=== PATIENT | male | born 1970 | race Caucasian/White ===

== ENCOUNTER 2017-10-11 05:38 | Emergency (ER) | payer BC ==
--- NOTE | 2017-10-11 07:10 | CT ---
CT abdomen and pelvis Technique: Multiple axial sections of were obtained from above the dome of the diaphragm inferiorly to the pubic symphysis. Intravenous and oral contrast not utilized. Study has been performed as a ureteral stone protocol. Comparison: No priors abdominal x-ray. Findings: Kidneys show no abnormal calcifications. Right kidney shows a slightly hazy outline with a slightly prominent right ureter with minimal inflammatory change seen around the proximal right ureter. No abnormal calcifications are seen along the course of the ureters. No bladder calculi are seen. Visualized lung bases shows nothing acute. Liver shows no focal parenchymal abnormality. Spleen appears within normal limits. Adrenal glands show no nodule. Pancreas appears normal. Aorta shows no aneurysmal dilatation. No retroperitoneal adenopathy is seen. No mesenteric abnormalities are seen. Appendix is seen which appears normal. No pelvic mass or adenopathy is seen. No free fluid is seen. Bone window settings were reviewed which shows slight degenerative change within the disc at L5-S1. Impression: 1. Slight haziness around the right kidney with minimally prominent right ureter. Differential includes pyelonephritis but more likely represents change from previous obstructing right ureteral stone that has passed. Please correlate with the patient's symptoms. 2. Other incidental finding. Diagnostic code #3
--- NOTE | 2017-10-11 07:21 | EDM.PDOC ---
ED HPI GENERAL MEDICAL PROBLEM - General Chief Complaint: Back Pain or Injury Stated Complaint: RIGHT SIDE PAIN Time Seen by Provider: 10/11/17 06:28 Source of Information: Reports: Patient, RN Notes Reviewed - History of Present Illness INITIAL COMMENTS - FREE TEXT/NARRATIVE: 46-year-old male comes in with right flank and back discomfort. Sudden onset of this pain about 2 hours prior to arrival. Initially the pain was extremely severe, sharp shooting with radiation both to the back and also to the right groin. He was not able to find a position of comfort. He has never had anything like that in the past. Recent injury. He did become somewhat nauseated initially but that has resolved. Now after arrival to the ED the pain is much less severe, down to about a 2 from a 10. No voiding symptomatology. No fever or chills. Back Pain Score (Numeric/FACES): 2 Past Medical History - Past Health History Medical/Surgical History: Denies Medical/Surgical History Social & Family History - Family History Family Medical History: Noncontributory - Tobacco Use Smoking Status *Q: Never Smoker Second Hand Smoke Exposure: No - Caffeine Use Caffeine Use: Reports: None - Alcohol Use Number of Drinks Per Day: 1 - Recreational Drug Use Recreational Drug Use: No ED ROS GENERAL - Review of Systems Review Of Systems: See Below Constitutional: Reports: Diaphoresis. Denies: Fever, Chills HEENT: Reports: No Symptoms Respiratory: Denies: Shortness of Breath Cardiovascular: Denies: Chest Pain GI/Abdominal: Reports: Abdominal Pain, Nausea (Right flank pain). Denies: Vomiting : Reports: No Symptoms Musculoskeletal: Reports: Back Pain (Right-sided only) Neurological: Reports: No Symptoms ED EXAM, RENAL/ - Physical Exam Exam: See Below General Appearance: Alert, No Apparent Distress Throat/Mouth: Normal Inspection Head: Atraumatic Neck: Supple Respiratory/Chest: No Respiratory Distress, Lungs Clear Cardiovascular: Regular Rate, Rhythm GI/Abdominal: Soft, Non-Tender Back Exam: CVA Tenderness (R) (Slight) Extremities: Normal Inspection Neurological: Alert, Oriented, No Motor/Sensory Deficits Skin Exam: Warm, Dry, Normal Color Course - Vital Signs Last Recorded V/S: Last Vital Signs Temp 97.1 F 10/11/17 05:47 Pulse 69 10/11/17 05:47 Resp 14 10/11/17 05:47 BP 124/94 H 10/11/17 05:47 Pulse Ox 96 10/11/17 05:47 - Re-Assessments/Exams Free Text/Narrative Re-Assessment/Exam: 10/11/17 07:23 Although pain was much less at time of my exam we did decide to go ahead and proceed with renal CT. There was slight haziness noted around the right kidney with minimally prominent right ureter. This is compatible with recent passage of kidney stone which symptomatology strongly suggests. Discharge instructions as documented. Departure - Departure Time of Disposition: 07:19 Disposition: Home, Self-Care 01 Condition: Fair Clinical Impression: Kidney calculus - Discharge Information Referrals: PCP,None [Primary Care Provider] - Forms: ED Department Discharge Additional Instructions: There is evidence that you did have a kidney stone on the right and it has at least passed into your bladder. It will be no problem for you to void that out of your bladder. You may take Tylenol or ibuprofen if you do have further discomfort. Drink plenty of water to maintain hydration. Follow-up clinic as needed, return to ED as needed.
== END 2017-10-11 07:30 | disposition home or self-care (01) ==
LOC: SUPCPDRO 05:38 → JD.ED 05:38
DX: N20.0 Calculus of kidney (principal)
CPT/HCPCS: 74176; 74176-26; 99282; 99284-25

== ENCOUNTER 2023-07-01 10:51 | Emergency (ER) | payer BC ==
[2023-07-01] MEDS ORDERED: Sodium Chloride 0.9% 10 ML Syringe FLUSH PRN (11:21)
[2023-07-01] MEDS: Aspirin 81 MG Tab.Chew PO ONE (11:45)
[2023-07-01 12:12] LABS: BASOPHILS PERCENT AUTO 0.8 % (0.0-1.0); EOSINOPHILS ABSOLUTE AUTO 0.1 K/mm3 (0.0-0.4); EOSINOPHILS PERCENT AUTO 2.1 % (0.0-6.0); HEMATOCRIT 44.8 % (42.0-52.0); HEMOGLOBIN 15.7 gm/dl (14.0-18.0); IMMATURE GRAN ABSOLUTE AUTO 0.01 K/mm3 (0.00-0.05); IMMATURE GRAN PERCENT AUTO 0.2 % (0.0-0.4); LYMPHOCYTES ABSOLUTE AUTO 1.5 K/mm3 (1.0-4.8); LYMPHOCYTES PERCENT AUTO 29.7 % (24.0-44.0); MEAN CORPUSCULAR HEMOGLOBIN 30.7 pg (28.0-32.0); MEAN CORPUSCULAR VOLUME 87.5 fl (83.0-99.0); MEAN PLATELET VOLUME 9.3 fl (9.4-12.4); MONOCYTES ABSOLUTE AUTO 0.5 K/mm3 (0.0-0.8); MONOCYTES PERCENT AUTO 10.1 % (0.0-8.0); NEUTROPHILS ABSOLUTE AUTO 2.9 K/mm3 (1.8-7.7); NEUTROPHILS PERCENT AUTO 57.1 % (41.0-71.0); PLATELET COUNT,PLT 184 K/mm3 (150-400); RED BLOOD CELL COUNT 5.12 M/mm3 (4.52-5.90); WHITE BLOOD CELL COUNT,WBC 5.15 K/mm3 (3.9-11.3)
[2023-07-01 12:34] LABS: PROTHROMBIN TIME 10.7 SECONDS (9.7-12.0)
[2023-07-01 12:37] LABS: A/G RATIO 1.1 (1-2); ALBUMIN 3.8 g/dl (3.4-5.0); BILIRUBIN TOTAL 0.6 mg/dL (0.2-1.0); BUN/CREATININE RATIO 10.9 (14-18); CALCIUM 8.7 mg/dL (8.5-10.1); CREATININE 1.1 mg/dL (0.7-1.3); EST CRCL DRUG DOSING (CG) 89.79 mL/min; MAGNESIUM 1.8 mg/dL (1.8-2.4); PROTEIN TOTAL,TP 7.4 g/dl (6.4-8.2)
[2023-07-01 12:40] LABS: D-DIMER QUANTITATIVE < 0.19 mg/L (0.19-0.50)
== END 2023-07-01 13:35 | disposition home or self-care (01) ==
LOC: JD.ED 10:51
DX: R07.2 Precordial pain (principal)
CPT/HCPCS: 36415; 71046; 80053; 83735; 84484; 85025; 85379; 85610; 93005; 99285; A9270